=== PATIENT | male | born 1990 | race Caucasian/White ===

== ENCOUNTER 2020-09-08 14:48 | Emergency (ER) | payer BC, SELFPAY ==
[2020-09-08 14:58] VITALS: BP 159/95; PULSE 135; RESP 16; TEMP 36.2; O2SAT 99
--- NOTE | 2020-09-08 15:14 | ED.URI ---
HPI - URI/Sore Throat General Chief Complaint: Upper Respiratory Infection Stated Complaint: cough/sob/sore throat Time Seen by Provider: 09/08/20 15:05 Source: patient and RN notes reviewed Mode of arrival: ambulatory Limitations: no limitations History of Present Illness HPI Narrative: Patient presents today with a 2-day history of cough, shortness of breath, gurgling in my chest , congestion. He also reports some sore throat last night that he attributes to increased coughing episodes. Denies fever, rhinorrhea, ear pain, nausea, vomiting, diarrhea, loss of taste or smell. Denies any known sick contacts. He has been taking Advil with mild relief. Patient vapes, but states he quit 2 days ago. Denies history of asthma or COPD. MD elicited complaint: cough Related Data Allergies Allergy/AdvReac Type Severity Reaction Status Date / Time No Known Allergies Allergy Unverified 09/05/16 18:42 Review of Systems Review of Systems: Narrative: CONSTITUTIONAL: Denies body aches, fever, chills, or sweats. EYES: Denies visual changes, redness, or discharge. ENT: Denies rhinorrhea, otalgia. + Congestion, sore throat CARDIOVASCULAR: Denies chest pain, palpitations, or edema. RESPIRATORY:+ Cough, shortness of breath, chest congestion GASTROINTESTINAL: Denies abdominal pain, nausea, vomiting, or diarrhea. GENITOURINARY: Denies dysuria or hematuria. SKIN: Denies rash, itching, or wounds. MUSCULOSKELETAL: Denies back pain, joint pain, or myalgia. NEUROLOGIC: Denies headache, numbness, tingling, or weakness. PSYCH: Denies depression or anxiety. [facility] Social History Social History (Updated 09/08/20 @ 15:16 by Camelia William, [facility], ) Smoking status: Former smoker Tobacco type: e-cigarettes/vaping Smoking end date: 09/06/20 Comments At time of signature, I have reviewed and agree with nursing past medical, surgical, social and family history unless otherwise noted. Please see nursing chart for further information. There is no relevant family history pertinent to the presenting complaint Exam Narrative: Exam Narrative: GENERAL: Well-appearing, well-nourished, and in no acute distress. HEAD: Normocephalic, atraumatic. EYES: EOMI. No redness or drainage. Conjunctivae normal. ENT: Mucous membranes pink and moist. Nares clear. No rhinorrhea. TMs normal bilaterally. Throat normal with mild postnasal drainage. Uvula midline. NECK: Normal AROM. Supple. No lymphadenopathy. CHEST: No respiratory distress. Inspiratory wheeze to the left upper lobe, otherwise clear but tight. HEART: Regular rhythm. + Tachycardia. No murmur appreciated. Normal peripheral pulses. EXTREMITIES: Normal range of motion. No edema. SKIN: Warm, dry, no rash. Capillary refill normal. Normal skin turgor. NEURO: No focal deficits. Alert and oriented x3. Gait steady. PSYCH: Normal affect. No signs of depression or anxiety. Course Course Emergency Course: 1610-states he is able to take a deeper breath after DuoNeb treatment. Aeration has increased and wheezing has decreased. Vital Signs Vital signs: Vital Signs Temperature 97.1 F L 09/08/20 14:58 Pulse Rate 135 H 09/08/20 14:58 Respiratory Rate 16 09/08/20 14:58 Blood Pressure 159/95 H 09/08/20 14:58 Pulse Oximetry 99 09/08/20 14:58 Temperature 97.1 F L 09/08/20 14:58 Pulse Rate 125 H 09/08/20 16:04 Respiratory Rate 22 H 09/08/20 16:04 Blood Pressure 159/95 H 09/08/20 14:58 Pulse Oximetry 95 09/08/20 16:04 Reviewed. Pt has been instructed to follow up with his PCP regarding his elevated blood pressure today. MDM - URI/Sore Throat Differential Diagnosis Differential diagnosis: Likely upper respiratory infection, sinusitis, viral infection, bronchitis, pharyngitis and other (Pneumonia, COVID-19, strep throat) Lab Data Attestation: I reviewed the patient's lab results. Labs: Lab Results 09/08/20 Range/Units 15:16 POC SARS CoV-2 Ag Negative (Negative) S
[2020-09-08] MEDS: IPRATROPIUM BR 0.02% INH SOLN 0.5 MG/2.5 ML VIAL INHALATION (15:36)
[2020-09-08] MEDS: ALBUTEROL SULFATE NEB 2.5 MG/3 ML INH INHALATION (15:36)
[2020-09-08 16:04] VITALS: PULSE 125; RESP 22; O2SAT 95
== END 2020-09-08 16:22 | disposition home or self-care (01) ==
PROVIDERS: Emergency Provider Nurse Practitioner
DX: J40 Bronchitis, not specified as acute or chronic (principal); J06.9 Acute upper respiratory infection, unspecified; Z20.822 Contact with and (suspected) exposure to COVID-19; Z87.891 Personal history of nicotine dependence
CPT/HCPCS: 87081; 87426; 87880; 94640; 99213; C9803; G0463

== ENCOUNTER 2023-12-13 07:46 | Emergency (ER) | payer BC, SELFPAY ==
[2023-12-13] VITALS (13 sets, daily range): BP systolic 123–146; BP diastolic 86–100; PULSE 71–98; RESP 12–20; TEMP 36.6–36.8; O2SAT 96–100
--- NOTE | ~2023-12-13 | XR_ITS ---
EXAMINATION: XR chest 1V portable DATE: 12/13/2023 12:40 INDICATION: Intermittent chest pain. TECHNIQUE: A single frontal view of the chest was obtained. COMPARISON: None. FINDINGS: There is no pneumonia, pleural effusion, or pneumothorax. The heart size is normal. IMPRESSION: 1. No acute cardiopulmonary disease. Reviewed, dictated and finalized at location A.
--- NOTE | 2023-12-13 08:00 | ECG_ITS ---
SEE SCANNED COPY FOR CONFIRMED REPORT MTDD
[2023-12-13 08:11] LABS: Basophils Absolute Auto 0.1 K/mm3 (0.0-0.1); Eosinophils Absolute Auto 0.1 K/mm3 (0-0.3); Eosinophils Percent Auto 1.4 % (0-4.4); Hemoglobin 15.4 g/dL (14.0-18.0); Immature Granulocyte Absolute 0.05 K/mm3 (0.00-0.031); Immature Granulocyte Percent A 0.5 % (0-0.5); Lymphocytes Absolute Auto 3.08 K/mm3 (0.9-3.2); Lymphocytes Percent Auto 31.8 % (18.3-44.2); Mean Corpuscular HGB Conc 32.1 g/dl (32-36); Mean Corpuscular Hemoglobin 29.3 pg (26-34); Mean Corpuscular Volume 91.4 fl (80-100); Mean Platelet Volume 10.6 fl (7.4-10.4); Monocytes Percent Auto 10.3 % (2.6-8.5); Neutrophils Absolute Auto 5.3 K/mm3 (1.3-6.7); Platelet Count Result 317 k/mm3 (150-375); Red Blood Count 5.25 M/mm3 (4.6-6.20); Red Cell Distribution Width 14.3 % (11.5-14.5); White Blood Count 9.7 K/mm3 (4.5-10.0)
[2023-12-13 08:21] LABS: Alanine Aminotransferase 36 U/L (6-50); Alkaline Phosphatase 111 U/L (38-126); Anion Gap 7 mmol/L (4-12); Aspartate Amino Transferase 50 U/L (17-59); Bilirubin,Total 0.8 mg/dL (0.2-1.3); Blood Urea Nitrogen 14 mg/dL (9-20); Calcium 9.4 mg/dL (8.4-10.2); Carbon Dioxide 26 mmol/L (22-30); Chloride 104 mmol/L (98-107); Estimated CRCL calculation 109 ml/min; Estimated Glomerular Filt Rate > 60; Glucose 115 mg/dL (65-110); Lipase 94 U/L (23-300); Potassium 3.6 mmol/L (3.4-5.0); Sodium 137 mmol/L (137-145)
[2023-12-13 08:25] LABS: Prothrombin Time 13.3 Seconds (11.1-14.7)
[2023-12-13 08:26] LABS: Partial Thromboplastin Time 27.4 Seconds (22.3-36.8)
[2023-12-13 08:32] LABS: Troponin I < 0.012 ng/mL (0.000-0.034)
--- NOTE | 2023-12-13 08:48 | ED.CHESTPAIN ---
HPI - Chest Pain General Chief Complaint: Chest Pain Stated Complaint: chest pain Time Seen by Provider: 12/13/23 08:22 History of Present Illness HPI narrative: 33-year-old male presents to to the emergency department for evaluation of chest pain for last few days. Patient describes intermittent chest pain that he rates as a 3. Patient denies any prior history of PE or DVT. Related Data Allergies Allergy/AdvReac Type Severity Reaction Status Date / Time No Known Allergies Allergy Verified 12/13/23 07:47 Review of Systems Review of Systems: All systems reviewed & are unremarkable except as noted in HPI and below PMFSH Social History Social History (Updated 09/08/20 @ 15:16 by Camelia William, [facility], ) Smoking status: Former smoker Tobacco type: e-cigarettes/vaping Smoking end date: 09/06/20 Exam Narrative: APPEARANCE: Well appearing, no pain, no distress, well-nourished. HEAD: normocephalic, atraumatic. EYES: PERRLA/EOMI, conjunctivae clear. NOSE: Normal no drainage EARS:TMS clear with good light reflex. THROAT: Pharynx clear, no exudate. NECK: Supple. No adenopathy, no masses. RESPIRATORY: Airway patent, respirations nonlabored. Clear to auscultation bilaterally, no rales, rhonchi, wheezing. CARDIOVASCULAR: Regular rate and rhythm without murmurs rubs or gallops. ABDOMINAL: Soft, nontender, nondistended, normal bowel sounds MUSCULOSKELETAL: Moves all extremities. Strength/ROM intact, No edema, No calf tenderness. NEURO: Alert. Cranial nerves II through XII intact. Grossly intact SKIN: Warm, dry. Normal Color Course Vital Signs Vital signs: Vital Signs Temperature 97.8 F 12/13/23 07:52 Pulse Rate 97 12/13/23 07:52 Respiratory Rate 16 12/13/23 07:52 Blood Pressure 137/96 H 12/13/23 07:52 Pulse Oximetry 100 12/13/23 07:52 Oxygen Delivery Room Air 12/13/23 07:52 Temperature 98.0 F 12/13/23 12:45 Pulse Rate 71 12/13/23 13:19 Respiratory Rate 12 12/13/23 13:19 Blood Pressure 123/88 12/13/23 13:19 Pulse Oximetry 99 12/13/23 13:19 Oxygen Delivery Room Air 12/13/23 08:21 MDM - Chest Pain MDM Narrative Medical decision making narrative: 33-year-old male presents to the emergency department for evaluation of intermittent chest pain. Patient is afebrile with no leukocytosis and a stable hemoglobin, patient had normal electrolytes negative serial troponins and negative D-dimer normal lipase. Low concern for ACS. Chest x-ray showed no acute cardiopulmonary abnormality an EKG showed normal sinus rhythm. patient's of the results of his workup patient was encouraged of close follow-up with his primary care physician for additional outpatient cardiac testing. Differential Diagnosis Differential diagnosis: Likely pneumothorax, atypical chest pain, costochondritis, chest pain and biliary colic Lab Data Attestation: I reviewed the patient's lab results. 12/13/23 08:05 12/13/23 08:05 Labs: Lab Results 12/13/23 12/13/23 Range/Units 08:05 11:09 WBC 9.7 (4.5-10.0) K/mm3 RBC 5.25 (4.6-6.20) M/mm3 Hgb 15.4 (14.0-18.0) g/dL Hct 48.0 (42.0-52.0) % MCV 91.4 (80-100) fl MCH 29.3 (26-34) pg MCHC 32.1 (32-36) g/dl RDW 14.3 (11.5-14.5) % Plt Count 317 (150-375) k/mm3 MPV 10.6 H (7.4-10.4) fl Immature Gran % (Auto) 0.5 (0-0.5) % Neut % (Auto) 55.0 (45.5-73.1) % Lymph % (Auto) 31.8 (18.3-44.2) % Burnet % (Auto) 10.3 H (2.6-8.5) % Eos % (Auto) 1.4 (0-4.4) % Baso % (Auto) 1.0 (0.2-1.2) % Lymph # (Auto) 3.08 (0.9-3.2) K/mm3 Burnet # (Auto) 1.0 H (0.1-0.6) K/mm3 Eos # (Auto) 0.1 (0-0.3) K/mm3 Baso # (Auto) 0.1 (0.0-0.1) K/mm3 Abs Immat Gran (auto) 0.05 H (0.00-0.031) K/mm3 Absolute Neuts (auto) 5.3 (1.3-6.7) K/mm3 Absolute Nucleated RBC 0.000 (0.0-0.012) K/mm3 Nucleated RBC % 0.0 (0.0-0.2) % PT 13.3 (11.1-14.7) Seconds INR 1.0
[2023-12-13] MEDS: BELLADONNA ALK/PHENOB ELIX 10 ML, MAG HYDROX/ALUMINUM HYD/SIMETH 30 ML, LIDOCAINE HCL 2... PO (09:09)
[2023-12-13] MEDS: ONDANSETRON INJ 4 MG/2 ML VIAL IV PUSH (09:09)
[2023-12-13 09:48] LABS: D Dimer < 0.27 ug/mL (<0.48)
--- NOTE | 2023-12-13 09:49 | PC.NURSE ---
Pt states relief from GI cocktail. Pt c/o he feels like it is muscular pain
--- NOTE | 2023-12-13 11:07 | ECG_ITS ---
SEE SCANNED COPY FOR CONFIRMED REPORT MTDD
[2023-12-13 11:37] LABS: Troponin I < 0.012 ng/mL (0.000-0.034)
== END 2023-12-13 13:21 | disposition home or self-care (01) ==
PROVIDERS: Emergency Provider Emergency Medicine
DX: R07.89 Other chest pain (principal); Z87.891 Personal history of nicotine dependence; I45.10 Unspecified right bundle-branch block; R94.31 Abnormal electrocardiogram [ECG] [EKG]
CPT/HCPCS: 36415; 71045; 80053; 83690; 84484; 85025; 85380; 85610; 85730; 93005; 96374; 99284; A9270; J2405